=== PATIENT | male | born 1985 | race Caucasian/White ===

== ENCOUNTER 2019-06-14 09:21 | Emergency (ER) | payer SELFPAY ==
[~2019-06-14] VITALS: Ht 172.7 cm; Wt 80.0 kg
[2019-06-14] MEDS ORDERED: IBUP-2029 PO (09:35)
[2019-06-14 09:53] VITALS: BP 151/80
[2019-06-14] MEDS ORDERED: IBUPROFEN 400MG TABLET PO ONE (10:00)
== END 2019-06-14 13:51 | disposition home or self-care (01) ==
LOC: ER 12:32
DX: H66.92 Otitis media, unspecified, left ear (principal); R03.0 Elevated blood-pressure reading, without diagnosis of hypertension; E78.00 Pure hypercholesterolemia, unspecified
CPT/HCPCS: 99283